=== PATIENT | male | born 1980 | race Caucasian/White ===

== ENCOUNTER 2017-01-02 23:04 | Emergency (ER) | payer SELFPAY ==
[2017-01-03] MEDS ORDERED: HYDROCODONE/ACETAMINOPHEN 5/325MG TABLET ONE ×2 (01:02)
[2017-01-03] MEDS ORDERED: IBUPROFEN 800 MG TABLET ONE (01:02)
--- NOTE | 2017-01-03 07:38 | RAD ---
HIP - LEFT 2 VW + AP PELVIS COMPARISON: None. HISTORY: Slip and fall. Tailbone and left hip pain. FINDINGS: Views: AP pelvis. Left hip AP and frog-leg. Bones: Normal. Joints: Normal. Soft tissues: Normal. IMPRESSION: Normal study.
== END 2017-01-03 02:14 | disposition home or self-care (01) ==
LOC: ED 23:04
DX: S30.0XXA Contusion of lower back and pelvis, initial encounter (principal); F17.210 Nicotine dependence, cigarettes, uncomplicated; W10.9XXA Fall (on) (from) unspecified stairs and steps, initial encounter; Y92.9 Unspecified place or not applicable
CPT/HCPCS: 73502; 99283 ×2; A9270 ×3